=== PATIENT | male | born 1935 ===

== ENCOUNTER 2019-01-29 07:13 | Outpatient (CLI) | payer OTHER | END 2019-01-29 07:20 | disposition home or self-care (01) | LOC: SONOGRAMA 07:13 | DX: E04.1 Nontoxic single thyroid nodule (principal) ==

== ENCOUNTER 2021-03-30 11:43 | Outpatient (CLI) | payer OTHER | END 2021-03-30 12:33 | disposition home or self-care (01) | LOC: SONOGRAMA 11:43 | PROVIDERS: ATTEND Pathology Anatomic Pathology & Clinical Pathology | DX: E04.1 Nontoxic single thyroid nodule (principal); D34 Benign neoplasm of thyroid gland ==